=== PATIENT | female | born 1965 | race Caucasian/White ===

== ENCOUNTER → 2017-01-16 | Outpatient (CLI) | payer OTHER ==
[~2017-01-16] MED LIST: LEVO150C2 PO; LEVO200T5 PO; MEDR10TA; NITR100C56 PO
== END | disposition home or self-care (01) ==
LOC: STAR 13:42
PROVIDERS: ATTEND Surgery
DX: Z02.9 Encounter for administrative examinations, unspecified (principal)

== ENCOUNTER 2017-01-25 13:02 | Day surgery (SDC) | payer OTHER ==
[~2017-01-25] VITALS: Ht 160 cm; Wt 88.5 kg
[~2017-01-25 13:02] MED LIST changes: +BUPIVACAINE/PF-EPI 0.25% 1:200K ONE
[2017-01-25] MEDS ORDERED: LACTATED RINGERS 1,000 ML IV SCH ×2 (13:51→16:27)
[2017-01-25 13:55] VITALS: BP 126/73
[2017-01-25] MEDS ORDERED: LIDOCAINE 1%, 2ML SQ PRN (14:00)
[2017-01-25] MEDS ORDERED: MIDAZOLAM 1 MG/ML, 2ML ONE (14:53)
[2017-01-25] MEDS ORDERED: FENTANYL PF 250 MCG/5ML ONE (14:53)
[2017-01-25] MEDS ORDERED: DEXAMETHASONE 4 MG/ML, 1ML ONE (15:15)
[2017-01-25] MEDS ORDERED: ONDANSETRON 2MG/ML, 2ML ONE (15:15)
[2017-01-25] MEDS ORDERED: ROCURONIUM 10 MG/ML ONE (15:15)
[2017-01-25] MEDS ORDERED: SUCCINYLCHOLINE 20 MG/ML, 10ML ONE (15:15)
[2017-01-25] MEDS ORDERED: CEFAZOLIN 1,000 MG ONE (15:15)
[2017-01-25] MEDS ORDERED: PROPOFOL 10 MG/ML, 20ML ONE (15:15)
[2017-01-25] MEDS ORDERED: METOCLOPRAMIDE 5 MG/ML, 2ML IV PRN (16:30)
[2017-01-25] MEDS ORDERED: ONDANSETRON 2MG/ML, 2ML IVPush PRN ×2 (16:30)
[2017-01-25] MEDS ORDERED: LABETALOL 5MG/ML, 20ML IV PRN (16:30)
[2017-01-25] MEDS ORDERED: PROMETHAZINE 25 MG/ML, 1ML IM PRN (16:30)
[2017-01-25] MEDS ORDERED: hydrALAzine 20 MG/ML, 1ML IV PRN (16:30)
[2017-01-25] MEDS ORDERED: ACETAMINOPHEN 325 MG TABLET PO PRN (16:30)
[2017-01-25] MEDS ORDERED: OXYcodone 5 MG/5 ML ORAL.SOL UDC PO PRN (16:30)
[2017-01-25] MEDS ORDERED: FENTANYL PF 100 MCG/2ML ONE (16:34)
[2017-01-25] MEDS: FENTANYL PF 100 MCG/2ML IV PRN ×3 (16:38→16:59)
[2017-01-25] MEDS ORDERED: OXYcodone 5 MG/5 ML ORAL.SOL UDC ONE (16:50)
[2017-01-25] MEDS ORDERED: HYDROmorphone 2 MG/ML, 1ML ONE (17:02)
[2017-01-25] MEDS: HYDROmorphone 1 MG/ML, 1ML IV PRN ×3 (17:04→17:17)
[2017-01-25] MEDS ORDERED: MORPHINE SULFATE 4 MG/ML, 1ML ONE ×2 (17:53→19:31)
[2017-01-25] MEDS: morphine SULFATE 10 MG/ML, 1ML IVPush PRN ×2 (18:00→19:43)
== END 2017-01-25 20:42 ==
LOC: OUT 13:02
PROVIDERS: ATTEND Surgery
DX: K43.2 Incisional hernia without obstruction or gangrene (principal); D17.1 Benign lipomatous neoplasm of skin and subcutaneous tissue of trunk; J45.909 Unspecified asthma, uncomplicated; E03.9 Hypothyroidism, unspecified; E66.3 Overweight; Z68.35 Body mass index [BMI] 35.0-35.9, adult
CPT/HCPCS: 49560; 49568; C1781; J0330; J0690; J1100; J1170; J2250; J2270; J2405; J2550; J2704; J3010; J3490; J7120

== ENCOUNTER → 2017-06-01 | Outpatient (CLI) | payer OTHER ==
[~2017-06-01] MED LIST changes: -BUPIVACAINE/PF-EPI 0.25% 1:200K ONE
== END | disposition home or self-care (01) ==
LOC: CFH 11:00
PROVIDERS: ATTEND Internal Medicine
DX: Z02.9 Encounter for administrative examinations, unspecified (principal)

== ENCOUNTER → 2019-10-23 | Outpatient (CLI) | payer OTHER ==
[~2019-10-23] MED LIST changes: +LIOT25TA12 PO; +[UNRECOGNIZED DRUG - MIXTURE] PO
[2019-10-23 15:53] LABS: MICROSCOPIC NOT IND
[2019-10-23 15:55] LABS: CULTURE INDICATED? NO
[2019-10-23 16:04] LABS: ALBUMIN 4.1 g/dL (3.4-5.0); ANION GAP 6 mmol/L (5-15); CALCIUM 9.3 mg/dL (8.5-10.1); CHLORIDE 105 mmol/L (98-107)
[2019-10-23 16:06] LABS: BASOPHILS # (AUTO) 0.08 x10^3/uL (0-0.1); BASOPHILS % (AUTO) 1 % (0-1); EOSINOPHILS # (AUTO) 0.64 x10^3/uL (0-0.4); EOSINOPHILS % (AUTO) 6 % (1-7); LYMPHOCYTES # (AUTO) 2.54 x10^3/uL (1-3.4); LYMPHOCYTES % (AUTO) 24 % (22-44); MD NO; MEAN CORPUSCULAR HEMOGLOBIN 29.8 pg (27.0-34.8); MEAN CORPUSCULAR HGB CONC 32.4 g/dL (32.4-35.8); MEAN CORPUSCULAR VOLUME 91.9 fL (80-100); MEAN PLATELET VOLUME 8.8 fL (7.4-10.4); MONOCYTES % (AUTO) 6 % (2-9); NEUTROPHILS # (AUTO) 6.92 x10^3/uL (1.8-6.8); NEUTROPHILS % (AUTO) 64 % (42-75); PLATELET COUNT 313 x10^3/uL (130-400); RED BLOOD COUNT 5.34 x10^6/uL (3.82-5.3); RED CELL DISTRIBUTION WIDTH 13.7 % (9.6-15.2)
[2019-10-23 16:11] LABS: ALANINE AMINOTRANSFERASE 88 U/L (12-78); ALKALINE PHOSPHATASE 184 U/L (45-117); BILIRUBIN,TOTAL 0.4 mg/dL (0.2-1.0); CREATININE 0.67 mg/dL (0.55-1.02); TOTAL PROTEIN 8.2 g/dL (6.4-8.2)
== END | disposition home or self-care (01) ==
LOC: STAR 14:39
PROVIDERS: ATTEND Obstetrics & Gynecology
DX: Z01.818 Encounter for other preprocedural examination (principal); R19.09 Other intra-abdominal and pelvic swelling, mass and lump; Z88.2 Allergy status to sulfonamides; Z88.8 Allergy status to other drugs, medicaments and biological substances; Z88.0 Allergy status to penicillin
CPT/HCPCS: 36415; 71046; 80053; 81003; 84702; 85025; 93005

== ENCOUNTER 2019-11-01 10:30 | Day surgery (SDC) | payer OTHER ==
[~2019-11-01] VITALS: Ht 160 cm; Wt 90.9 kg
[2019-11-01 11:01] VITALS: BP 111/71
[2019-11-01] MEDS ORDERED: LACTATED RINGERS 1,000 ML IV SCH (11:03)
[2019-11-01 11:25] LABS: HCG UR SG 1.024 (1.003-1.030)
[2019-11-01] MEDS ORDERED: APREPITANT 40 MG CAPSULE ONE (13:12)
[2019-11-01] MEDS ORDERED: FENTANYL PF 250 MCG/5ML ONE (13:17)
[2019-11-01] MEDS ORDERED: MIDAZOLAM 1 MG/ML, 2ML ONE (13:17)
[2019-11-01] MEDS ORDERED: BUPIVACAINE/PF-EPI 0.25% 1:200K ONE (13:18)
[2019-11-01] MEDS ORDERED: SILVER NITRATE STICK TP ONE (13:18)
[2019-11-01] MEDS ORDERED: PROPOFOL 50 ML ONE (13:20)
[2019-11-01] MEDS ORDERED: HALOPERIDOL 5 MG/ML ONE ×2 (13:26→14:40)
[2019-11-01] MEDS ORDERED: CEFOTETAN 2 GM ONE (13:26)
[2019-11-01] MEDS ORDERED: KETOROLAC 30 MG/1 ML ONE (13:26)
[2019-11-01] MEDS ORDERED: ROCURONIUM 10MG/ML,5ML ONE (13:26)
[2019-11-01] MEDS ORDERED: DEXAMETHASONE 4 MG/ML, 1ML ONE (13:26)
[2019-11-01] MEDS ORDERED: PROPOFOL 10 MG/ML, 20ML ONE (13:26)
[2019-11-01] MEDS ORDERED: ONDANSETRON 2MG/ML, 2ML ONE (13:26)
[2019-11-01] MEDS ORDERED: KETAMINE 10 MG/ML, 20ML ONE (13:48)
[2019-11-01] MEDS ORDERED: SUGAMMADEX 200 MG/2 ML IVPush ONE (14:19)
[2019-11-01] MEDS ORDERED: ALBUTEROL SULFATE 2.5 MG/3 ML NPPB PRN (14:30)
[2019-11-01] MEDS ORDERED: OXYcodone 5 MG/5 ML ORAL.SOL UDC PO PRN (14:30)
[2019-11-01] MEDS ORDERED: ACETAMINOPHEN 325 MG TABLET PO PRN (14:30)
[2019-11-01] MEDS ORDERED: HALOPERIDOL 5 MG/ML IV PRN (14:30)
[2019-11-01] MEDS ORDERED: FENTANYL PF 100 MCG/2ML IV PRN (14:30)
[2019-11-01] MEDS ORDERED: hydrALAzine 20 MG/ML, 1ML IV PRN (14:30)
[2019-11-01] MEDS ORDERED: HYDROmorphone 2 MG/ML, 1ML IVPush PRN (14:30)
[2019-11-01] MEDS ORDERED: MEPERIDINE/PF 25MG/ML,1ML IVPush PRN (14:30)
[2019-11-01] MEDS ORDERED: METOCLOPRAMIDE 5 MG/ML, 2ML ONE (14:57)
[2019-11-01] MEDS ORDERED: METOCLOPRAMIDE 5 MG/ML, 2ML IVPush ONE (15:00)
[2019-11-01] MEDS ORDERED: PROMETHAZINE 25 MG SUPP PR ONE (15:11)
[2019-11-01] MEDS ORDERED: PROMETHAZINE 25 MG SUPP PR PRN (15:30)
== END 2019-11-01 18:50 | disposition home or self-care (01) ==
LOC: OUT 10:30
PROVIDERS: ATTEND Obstetrics & Gynecology
DX: Z30.2 Encounter for sterilization (principal); N83.11 Corpus luteum cyst of right ovary; N85.2 Hypertrophy of uterus; N83.8 Other noninflammatory disorders of ovary, fallopian tube and broad ligament; N94.89 Other specified conditions associated with female genital organs and menstrual cycle; K66.0 Peritoneal adhesions (postprocedural) (postinfection); E03.9 Hypothyroidism, unspecified; G43.909 Migraine, unspecified, not intractable, without status migrainosus; J45.909 Unspecified asthma, uncomplicated; Z98.51 Tubal ligation status; Z90.49 Acquired absence of other specified parts of digestive tract; Z98.890 Other specified postprocedural states; Z88.6 Allergy status to analgesic agent; Z88.1 Allergy status to other antibiotic agents; Z88.0 Allergy status to penicillin; Z88.8 Allergy status to other drugs, medicaments and biological substances
CPT/HCPCS: 36415; 58670; 81025; 86850; 86900; 88112; 88305; 88341; 88342; J1100; J1630; J1885; J2250; J2405; J2704; J2765; J3010; J3490; J7120; J8501